=== PATIENT | male | born 1975 | race Caucasian/White ===

== ENCOUNTER 2023-11-18 11:37 | Emergency (ER) | payer OTHER ==
[~2023-11-18] VITALS: Ht 177.8 cm; Wt 115.0 kg
[2023-11-18 11:39] VITALS: O2SAT 98
[2023-11-18 12:24] LABS: BASOPHILS % 0.4 % (0.0-2.0); EOSINOPHILS % 3.6 % (0.0-5.0); HEMATOCRIT. 37.8 % (42.0-52.0); HEMOGLOBIN. 12.9 g/dL (14.0-18.0); LYMPHOCYTES % 21.7 % (20.0-50.0); MEAN CORPUSCULAR HEMOGLOBIN 31.1 pg (28.0-32.0); MEAN CORPUSCULAR HGB CONC 34.1 g/dL (31.0-37.0); MONOCYTES % 9.3 % (2.0-8.0); PLATELET 300 x1000/uL (130-400); RED BLOOD CELL COUNT 4.15 mill/uL (4.7-6.1); RED CELL DISTRIBUTION WIDTH 13.2 % (11.6-14.6); WHITE BLOOD COUNT 7.6 x1000/uL (4.5-11.0)
[2023-11-18 12:28] LABS: CARBON DIOXIDE 26 mEq/L (21-32); CHLORIDE 99 mEq/L (98-107); POTASSIUM 2.9 mEq/L (3.5-5.1); SODIUM 134 mEq/L (136-145)
[2023-11-18 12:29] LABS: CALCIUM 8.8 mg/dL (8.7-10.4)
[2023-11-18 12:34] LABS: CREATININE 0.9 mg/dL (0.6-1.3); ETHANOL BLOOD 34 mg/dL (<10); GLUCOSE 85 mg/dL (70-105); UREA NITROGEN BLOOD 30 mg/dL (9-23)
[2023-11-18 12:36] LABS: ACETAMINOPHEN < 2 ug/mL (10-30)
[2023-11-18] MEDS: LIDOCAINE HCL 1% 20ML VIAL (Pyxis) INJ INFIL ONE (16:00)
[2023-11-18] MEDS: MORPHINE SULFATE 4 MG/ML INJ (FOR IV/IM USE) IV ONE (16:45)
[2023-11-18] MEDS: BACITRACIN ZINC OINT UDPKT TOP ONE ×2 (16:45)
[2023-11-18 16:51] LABS: PARTIAL THROMBOPLASTIN TIME 27.9 sec (23.4-31.0); PROTHROMBIN TIME 11.4 sec (9.6-11.0)
[2023-11-18] MEDS: LIDOCAINE HCL 2%/EPINEPHRINE/PF 10 ML VIAL INFIL ONE (17:50)
[2023-11-18] MEDS: HYDROMORPHONE HCL/PF 2MG/ML CPJ IV ONE (18:03)
[2023-11-18] MEDS: HYDROCODONE/ACETAMINOPHEN 5/325MG TABLET PO ONE (21:56)
[2023-11-19 01:53] LABS: CLARITY URINE TURBID (CLEAR); COLOR URINE DARK YELLOW (YELLOW); GLUCOSE URINE NEGATIVE (NEGATIVE); KETONES URINE TRACE (NEGATIVE); LEUKOCYTE ESTERASE URINE 2+ (NEGATIVE); NITRITE URINE NEGATIVE (NEGATIVE); OCCULT BLOOD URINE 2+ (NEGATIVE); PROTEIN URINE 3+ (NEGATIVE); UROBILINOGEN URINE 0.2 E.U./dL (0.2-1.0)
[2023-11-19 02:24] LABS: *AMPHETAMINES SCREEN URINE PRESUMPTIVE POSITIVE (NEGATIVE); *BARBITURATES SCREEN URINE NEGATIVE (NEGATIVE); *BENZODIAZEPINES SCREEN URINE NEGATIVE (NEGATIVE); *COCAINE SCREEN URINE NEGATIVE (NEGATIVE); METHADONE URINE SCREEN NEGATIVE (NEGATIVE)
[2023-11-19 02:25] LABS: CANNABINOID URINE SCREEN NEGATIVE (NEGATIVE); ECSTASY MDMA SCREEN URINE CONF.TEST INDICATED (NEGATIVE); OPIATES URINE SCREEN PRESUMPTIVE POSITIVE (NEGATIVE); PHENCYCLIDINE URINE SCREEN NEGATIVE (NEGATIVE)
[2023-11-19] MEDS: IBUPROFEN 600MG TABLET PO ONE (03:00)
[2023-11-19] MEDS: KETOROLAC 30MG/ML VIAL IV NR (03:06)
[2023-11-19 03:33] LABS: RBC URINE 25-50 /hpf (0-2); SQUAMOUS EPITHELIAL CELL URINE FEW /lpf (RARE/1+); WBC URINE TNTC /hpf (0-2)
[2023-11-19 03:36] LABS: BACTERIA URINE TRACE
[2023-11-19] MEDS: ACETAMINOPHEN 325MG TABLET PO ONE ×2 (09:05→18:50)
[2023-11-19] MEDS: NITROFURANTOIN 100MG M/M CAPSULE PO SCH (09:05)
[2023-11-19] MEDS: PHENAZOPYRIDINE HCL 100MG TABLET PO ONE (10:45)
[2023-11-19] MEDS: POTASSIUM CHLORIDE 20MEQ TABLET SR PO ONE (15:53)
[2023-11-19 20:23] LABS: CARBON DIOXIDE 31 mEq/L (21-32); CHLORIDE 98 mEq/L (98-107); POTASSIUM 3.4 mEq/L (3.5-5.1); SODIUM 136 mEq/L (136-145)
[2023-11-19 20:24] LABS: CALCIUM 9.7 mg/dL (8.7-10.4)
[2023-11-19 20:29] LABS: GLUCOSE 105 mg/dL (70-105); UREA NITROGEN BLOOD 34 mg/dL (9-23)
[2023-11-19 20:30] LABS: ALANINE AMINOTRANSFERASE 105 IU/L (10-49); ASPARTATE AMINOTRANSFERASE 56 IU/L (<34)
[2023-11-19 20:31] LABS: ALBUMIN 4.6 g/dL (3.2-4.8); BILIRUBIN TOTAL 0.5 mg/dL (0.1-1.0); PROTEIN TOTAL 7.4 g/dL (6.0-8.3)
[2023-11-19 20:40] LABS: CREATININE 1.4 mg/dL (0.6-1.3)
[2023-11-20 07:00] VITALS: BP 153/100; PULSE 82; RESP 18; TEMP 98.4
== END 2023-11-20 07:05 ==
LOC: ER 11:48
DX: R45.851 Suicidal ideations (principal); F15.10 Other stimulant abuse, uncomplicated; I10 Essential (primary) hypertension; Z20.822 Contact with and (suspected) exposure to COVID-19
CPT/HCPCS: 80053; 80305; 80048; 81003; 80307; 80329; 80320; 85025; 85610; 85730; 86850; 86900; 86901; 87086; 36415; 96374; 96375 ×2; 99285; 87426; J3490 ×2; J1170; J2270; Z7610 ×3; J1885; G0480